=== PATIENT | female | born 1940 | race Caucasian/White ===

== ENCOUNTER 2022-04-25 11:26 | Emergency (ER) | payer MEDICARE, OTHER ==
[~2022-04-25] VITALS: Ht 168.9 cm; Wt 63.6 kg
[2022-04-25] MEDS ORDERED: normal saline 1000ML IV soln IVB ONE (14:20)
[2022-04-25] MEDS ORDERED: ondansetron/PF 4mg/2ml inj IV ONE (14:20)
[2022-04-25 15:01] LABS: BASOPHILS % (AUTO) 0.1 % (0-1); EOSINOPHILS % (AUTO) 0 % (0-6); HEMATOCRIT 39.3 % (35.0-45.0); HEMOGLOBIN 12.9 g/dl (12.0-16.0); LYMPHOCYTES # (AUTO) 0.3 X10'3 (1.1-4.8); LYMPHOCYTES % (AUTO) 2.7 % (21-51); MEAN CORPUSCULAR HEMOGLOBIN 30.8 PG (27.0-31.0); MEAN CORPUSCULAR HGB CONC 32.9 g/dL (33.0-36.5); MEAN CORPUSCULAR VOLUME 93.6 FL (78-98); MEAN PLATELET VOLUME 7.5 FL (7.4-10.4); MONOCYTES # (AUTO) 0.8 X10'3 (0-0.9); MONOCYTES % (AUTO) 6.2 % (2-12); PLATELET COUNT 239 X10'3 (140-440); RED CELL DISTRIBUTION WIDTH 12.4 % (11.5-14.5); WHITE BLOOD COUNT 13.1 X10'3 (4.5-11.0)
[2022-04-25 15:19] LABS: ALANINE AMINOTRANSFERASE 24 U/L (12-78); ALBUMIN 3.5 G/DL (3.4-5.0); ALBUMIN/GLOBULIN RATIO 0.8 (1.1-1.5); ALKALINE PHOSPHATASE 179 IU/L (46-116); ANION GAP 8 (8-16); ASPARTATE AMINO TRANSFERASE 32 U/L (10-37); BILIRUBIN,TOTAL 0.8 MG/DL (0.1-1.0); BLOOD UREA NITROGEN 9 MG/DL (7-18); BUN/CREATININE RATIO 13.6 (6.6-38.0); CALCIUM 9.9 MG/DL (8.5-10.1); CHLORIDE 96 MMOL/L (99-107); CREATININE 0.66 MG/DL (0.40-0.90); GLUCOSE 96 MG/DL (70-104); POTASSIUM 3.7 MMOL/L (3.5-5.1); SODIUM 129 MMOL/L (135-145); TOTAL CARBON DIOXIDE 25.2 MMOL/L (24-32); TOTAL PROTEIN 7.7 G/DL (6.4-8.2); eGFR 86 ML/MIN
[2022-04-25] MEDS ORDERED: metroNIDAZOLE-Flagyl 500mg/NS 100 ML IV STA (15:37)
[2022-04-25] MEDS ORDERED: ciprofloxacin lact 400MG/200ML 200 ML IV STA (15:37)
[2022-04-25] MEDS ORDERED: morphine 4 MG/ML inj SYRINge IV ONE (15:50)
[2022-04-25 16:15] LABS: COLOR,URINE YELLOW (Yellow); GLUCOSE, URINE NEGATIVE (Neg); KETONES,URINE >=80 mg/dl (Neg); LEUKOCYTE ESTERASE ,URINE NEGATIVE (Neg); NITRITES, URINE NEGATIVE (Neg); OCCULT BLOOD,URINE MODERATE (Neg); PH,URINE 5.5 (4.8-8.0); PROTEIN,URINE NEGATIVE (Neg); UROBILINOGEN,URINE 0.2 E.U/dL (0.2-1.0)
[2022-04-25] MEDS ORDERED: TRAM50TA2 PO (16:21)
[2022-04-25] MEDS ORDERED: CIPR-202 PO (16:21)
[2022-04-25] MEDS ORDERED: METR-159 PO (16:21)
[2022-04-25 16:23] LABS: CLARITY,URINE SLIGHTLY CLOUDY (Clear); UA COLLECTION TYPE CLN CATCH MIDSTREAM
[2022-04-25 16:29] LABS: BACTERIA,URINE 2+ /HPF (Neg); MUCUS STRANDS MODERATE /LPF (Neg); SQUAMOUS EPITHELIAL CELL,UR FEW /LPF (FEW)
[2022-04-25 18:19] VITALS: BP 132/68
== END 2022-04-25 18:56 | disposition home or self-care (01) ==
LOC: ER 11:27
DX: K57.92 Diverticulitis of intestine, part unspecified, without perforation or abscess without bleeding (principal); Z79.899 Other long term (current) drug therapy
CPT/HCPCS: 36415; 71045; 74176; 80053; 81001; 85025; 87088; 96361; 96365; 96367; 96375; 99285; J0744; J2270; J3490; J7030

== ENCOUNTER 2022-04-28 17:58 | Inpatient (IN) | payer MEDICARE, OTHER ==
[~2022-04-28] VITALS: Ht 167.6 cm; Wt 65.0 kg
[~2022-04-28 17:58] MED LIST: CIPR-202 PO; METR-159 PO; TRAM50TA2 PO
--- NOTE | 2022-04-28 19:12 | NUR ---
Mahad quintero in EDM - 04/28/22 at 1914 by USMAN THE URINE THAT SHE GAVE WAS SPILLED INSIDE THE BAG AND NOT USEABLE. PT MADE AWARE THAT ANOTHER SAMPLE IS NEEDED AND SUPPLIED GIVEN TO PT.
[2022-04-28 22:18] LABS: CLARITY,URINE SLIGHTLY CLOUDY (Clear); COLOR,URINE YELLOW (Yellow); GLUCOSE, URINE NEGATIVE (Neg); KETONES,URINE 40 mg/dl (Neg); LEUKOCYTE ESTERASE ,URINE MODERATE (Neg); NITRITES, URINE NEGATIVE (Neg); OCCULT BLOOD,URINE MODERATE (Neg); PH,URINE 5.5 (4.8-8.0); PROTEIN,URINE 30 mg/dl (Neg); UROBILINOGEN,URINE 0.2 E.U/dL (0.2-1.0)
[2022-04-28 22:19] LABS: UA COLLECTION TYPE CLN CATCH MIDSTREAM
[2022-04-28 22:31] LABS: BACTERIA,URINE 2+ /HPF (Neg); SQUAMOUS EPITHELIAL CELL,UR FEW /LPF (FEW); WBC,URINE 30-50 /HPF (0-4)
[2022-04-28 22:32] LABS: MUCUS STRANDS FEW /LPF (Neg); TRANSITIONAL EPI CELLS,URINE FEW /HPF; WBC CLUMPS,URINE FEW /HPF (NEGATIVE)
[2022-04-28] MEDS ORDERED: ondansetron/PF 4mg/2ml inj IV ONE (23:20)
[2022-04-28] MEDS ORDERED: HYDROcodone/acetaminophen 10/325mg tab PO ONE (23:20)
[2022-04-28] MEDS ORDERED: normal saline 1000ML IV soln IVB ONE ×2 (23:20→23:40)
[2022-04-28 23:41] LABS: BASOPHILS % (AUTO) 0.3 % (0-1); EOSINOPHILS % (AUTO) 0.2 % (0-6); HEMATOCRIT 43.9 % (35.0-45.0); HEMOGLOBIN 14.9 g/dl (12.0-16.0); LYMPHOCYTES # (AUTO) 0.6 X10'3 (1.1-4.8); LYMPHOCYTES % (AUTO) 4.2 % (21-51); MEAN CORPUSCULAR HEMOGLOBIN 31.6 PG (27.0-31.0); MEAN CORPUSCULAR HGB CONC 33.9 g/dL (33.0-36.5); MEAN CORPUSCULAR VOLUME 93.3 FL (78-98); MEAN PLATELET VOLUME 7.3 FL (7.4-10.4); MONOCYTES # (AUTO) 0.9 X10'3 (0-0.9); MONOCYTES % (AUTO) 6.7 % (2-12); NEUTROPHILS # (AUTO) 11.6 X10'3 (1.8-7.7); NEUTROPHILS % (AUTO) 88.6 % (42-75); PLATELET COUNT 299 X10'3 (140-440); RED BLOOD COUNT 4.71 X10'6 (4.20-5.60); RED CELL DISTRIBUTION WIDTH 12.7 % (11.5-14.5); WHITE BLOOD COUNT 13.1 X10'3 (4.5-11.0)
[2022-04-28 23:57] LABS: ALANINE AMINOTRANSFERASE 18 U/L (12-78); ALBUMIN 3.9 G/DL (3.4-5.0); ALBUMIN/GLOBULIN RATIO 0.8 (1.1-1.5); ALKALINE PHOSPHATASE 161 IU/L (46-116); ANION GAP 13 (8-16); ASPARTATE AMINO TRANSFERASE 25 U/L (10-37); BLOOD UREA NITROGEN 8 MG/DL (7-18); BUN/CREATININE RATIO 10.1 (6.6-38.0); CALCIUM 11.2 MG/DL (8.5-10.1); CHLORIDE 93 MMOL/L (99-107); CREATININE 0.79 MG/DL (0.40-0.90); GLUCOSE 94 MG/DL (70-104); MAGNESIUM 1.9 MG/DL (1.5-2.4); POTASSIUM 3.7 MMOL/L (3.5-5.1); SODIUM 130 MMOL/L (135-145); TOTAL CARBON DIOXIDE 24.3 MMOL/L (24-32); TOTAL PROTEIN 8.8 G/DL (6.4-8.2); eGFR 70 ML/MIN
[2022-04-29] VITALS (10 sets, daily range): BP systolic 123–158; BP diastolic 56–94
[2022-04-29] MEDS ORDERED: diltiazem 5mg/ml 5ml inj. IV ONE (00:40)
[2022-04-29] MEDS ORDERED: diltiazem 30mg tablet PO ONE (00:40)
[2022-04-29] MEDS ORDERED: magnesium Cl slow-release 64mg tablet PO PRN (01:10)
[2022-04-29] MEDS ORDERED: magnesium 4gm in 100ml NS 100 ML IV PRN (01:10)
[2022-04-29] MEDS ORDERED: PERFLUTREN PROTEIN-A MICROSPHR (Optison) 0.22 MG/ML 3ML VIAL IV PRN (01:10)
[2022-04-29] MEDS ORDERED: acetaminophen 325mg tablet PO PRN (01:10)
[2022-04-29] MEDS ORDERED: potassium Cl 40MEQ/1/2NS 520ml 520 ML IV PRN (01:10)
[2022-04-29] MEDS ORDERED: normal saline 1000ml 1,000 ML IV SCH (01:10)
[2022-04-29] MEDS ORDERED: potassium Cl 20 mEq SR tablet PO PRN ×2 (01:10)
[2022-04-29] MEDS ORDERED: metoprolol tartrate 1mg/ml inj IV PRN ×2 (01:15)
[2022-04-29] MEDS: CefTRIAXone/D5W-Rocephin 1gm 50 ML IV SCH (07:09)
--- NOTE | 2022-04-29 07:21 | NUR ---
Paged Dr. Figueroa requesting diet.
[2022-04-29] MEDS: K and/or MAG REPLACEMENT MC SCH ×2 (08:00→19:31)
--- NOTE | 2022-04-29 08:46 | NUR ---
Episode of afib rvr HR 170-180's,denies chest pain, ekg teach at bedside.Paged Dr. Figueroa
--- NOTE | 2022-04-29 08:47 | NUR ---
Received a telephone order from Dr. Figueroa for cardizem ivp and cardizem drip.Patient aware of new orders.Family at bedside.We will monitor.
[2022-04-29] MEDS ORDERED: diltiazem 5mg/ml 5ml inj. IV STA (08:50)
[2022-04-29] MEDS ORDERED: diltiazem-NS 100mg/100ml 100 ML IV SCH (08:50)
[2022-04-29 08:53] LABS: MAGNESIUM 1.8 MG/DL (1.5-2.4); POTASSIUM 3.5 MMOL/L (3.5-5.1)
--- NOTE | 2022-04-29 09:23 | NUR ---
business services tech at bedside.
--- NOTE | 2022-04-29 09:25 | NUR ---
Assisted on a bedpan. Yellow clear urine.
[2022-04-29] MEDS: metroNIDAZOLE-Flagyl 500mg/NS 100 ML IV SCH ×3 (10:06→23:58)
[2022-04-29] MEDS: normal saline 1000ml 1,000 ML IV SCH ×2 (11:25→20:07)
--- NOTE | 2022-04-29 12:50 | NUR ---
Dr. Figueroa at bedside.
[2022-04-29] MEDS ORDERED: METR-159 PO (12:54)
[2022-04-29] MEDS ORDERED: OMEP20CA15 PO (12:54)
[2022-04-29] MEDS ORDERED: CIPR500T5 PO (12:54)
[2022-04-29] MEDS ORDERED: TRAM50TA2 PO (12:54)
[2022-04-29] MEDS ORDERED: heparin 25,000 UNIT/250ml bag 250 ML IV PRN (14:25)
[2022-04-29] MEDS ORDERED: heparin 10,000 units/1 ML INJ IV ONE (14:25)
[2022-04-29] MEDS ORDERED: heparin 10,000 units/1 ML INJ IV PRN (14:25)
[2022-04-29] MEDS ORDERED: amiodarone 150mg/dext, iso-os 100 ML IV ONE (14:30)
--- NOTE | 2022-04-29 14:38 | NUR ---
Spoke to regarding heparin order and pending d dmer states to start heparin drip due to high heart score and afib for stroke prevention.
[2022-04-29] MEDS ORDERED: amiodarone 450 MG in Dext 5% 250ml IV soln IV SCH (14:40)
--- NOTE | 2022-04-29 15:05 | NUR ---
Patient in room ED 7. I have received report from Marcus HUERTA and had the opportunity to ask questions and assume patient care.
--- NOTE | 2022-04-29 15:19 | NUR ---
Paged Dr. Figueroa again regarding heparin order.Heparin not started at this time.
[2022-04-29] MEDS: amiodarone/D5 360MG/200ML BAG 200 ML IV SCH ×2 (15:27→20:03)
[2022-04-29 15:31] LABS: APTT 29 SECONDS (22-32); D-DIMER 1.11 MG/L FEU (0-0.50)
--- NOTE | 2022-04-29 15:33 | NUR ---
Patient remained asymptomatic, anmniodarone drip started.Son at bedside.
--- NOTE | 2022-04-29 18:13 | NUR ---
Problems reprioritized. Patient report given, questions answered & plan of care reviewed with Anam HUERTA.
[2022-04-30] VITALS (17 sets, daily range): BP systolic 125–175; BP diastolic 55–84
[2022-04-30] MEDS: ondansetron/PF 4mg/2ml inj IV PRN ×3 (02:32→23:42)
[2022-04-30] MEDS: morphine 2 MG/ML inj. syringe IV PRN (02:32)
[2022-04-30] MEDS: amiodarone/D5 360MG/200ML BAG 200 ML IV SCH ×2 (02:39→08:40)
--- NOTE | 2022-04-30 03:48 | NUR ---
MD Mehta notified by phone that patient has gram positive cocci in clusters in the anaerobic bottle. had no new orders at this time.
[2022-04-30 06:41] LABS: BASOPHILS % (AUTO) 0.2 % (0-1); EOSINOPHILS # (AUTO) 0.1 X10'3 (0-0.9); EOSINOPHILS % (AUTO) 0.4 % (0-6); HEMATOCRIT 37.7 % (35.0-45.0); HEMOGLOBIN 12.3 g/dl (12.0-16.0); LYMPHOCYTES # (AUTO) 0.8 X10'3 (1.1-4.8); LYMPHOCYTES % (AUTO) 5.6 % (21-51); MEAN CORPUSCULAR HEMOGLOBIN 30.7 PG (27.0-31.0); MEAN CORPUSCULAR HGB CONC 32.8 g/dL (33.0-36.5); MEAN CORPUSCULAR VOLUME 93.7 FL (78-98); MEAN PLATELET VOLUME 7.2 FL (7.4-10.4); MONOCYTES # (AUTO) 0.9 X10'3 (0-0.9); MONOCYTES % (AUTO) 6.5 % (2-12); NEUTROPHILS # (AUTO) 11.9 X10'3 (1.8-7.7); NEUTROPHILS % (AUTO) 87.3 % (42-75); PLATELET COUNT 304 X10'3 (140-440); RED BLOOD COUNT 4.02 X10'6 (4.20-5.60); RED CELL DISTRIBUTION WIDTH 12.4 % (11.5-14.5); WHITE BLOOD COUNT 13.6 X10'3 (4.5-11.0)
[2022-04-30 06:56] LABS: ALBUMIN 2.8 G/DL (3.4-5.0); ANION GAP 9 (8-16); BLOOD UREA NITROGEN 3 MG/DL (7-18); BUN/CREATININE RATIO 6.3 (6.6-38.0); CALCIUM 9.6 MG/DL (8.5-10.1); CHLORIDE 104 MMOL/L (99-107); CREATININE 0.48 MG/DL (0.40-0.90); GLUCOSE 129 MG/DL (70-104); MAGNESIUM 1.7 MG/DL (1.5-2.4); POTASSIUM 3.3 MMOL/L (3.5-5.1); SODIUM 137 MMOL/L (135-145); TOTAL CARBON DIOXIDE 23.7 MMOL/L (24-32); eGFR > 90 ML/MIN
[2022-04-30] MEDS: K and/or MAG REPLACEMENT MC SCH ×2 (08:00→20:28)
[2022-04-30] MEDS: normal saline 1000ml 1,000 ML IV SCH (09:06)
[2022-04-30] MEDS: CefTRIAXone/D5W-Rocephin 1gm 50 ML IV SCH (09:08)
[2022-04-30] MEDS: metroNIDAZOLE-Flagyl 500mg/NS 100 ML IV SCH ×2 (10:39→16:01)
--- NOTE | 2022-04-30 11:01 | NUR ---
Paged Dr Figueroa Message: [phone]. Grad. May I have effer-K for K replacement? Thanks, Aretha [phone] Transaction number: [id number]
[2022-04-30 13:14] LABS: CHOLESTEROL 187 MG/DL (0-200); HDL CHOLESTEROL 62 MG/DL (35-60); LDL CHOLESTEROL 91 MG/DL (50-100); TRIGLYCERIDES 77 MG/DL (20-135)
[2022-04-30 13:34] LABS: HEMOGLOBIN A1C 4.9 % (4.5-6.2)
--- NOTE | 2022-04-30 14:13 | NUR ---
Malnutrition consult: Pt reports 2-13 lb wt loss with decreased appetite per malnutrition risk screen with RN. Attempted visit with pt at bedside however pt out of room. Per EMR pt with chair scaled wt h/o 63.64 kg 04/25, current chair scaled wt is 65 kg; no apparent wt loss. Per EMR pt with no documented significant decrease in muscle strength or edema. Pr currently lacks a minimum of two criteria for malnutrition. Noted pt admit for acute diverticulitis, written diverticulitis nutrition therapy education with a list of fiber content in foods and RD contact information left at patient's bedside. Will remain available. Addendum: 04/30/22 at [address] Amended: Links added.
--- NOTE | 2022-04-30 15:32 | NUR ---
Paged Dr Figueroa Message: [phone]. Krishna. Sinus rhythm, HR 70-80's. Want amio gtt bridged to PO? Aretha [phone] Transaction number: [id number]
[2022-04-30] MEDS ORDERED: vancomycin/NS 1 GM ADD-VANTAGE 250 ML IV SCH ×2 (16:00→16:08)
[2022-04-30] MEDS: POTASSIUM BICARB 20meq eff tab 20 MEQ TABLET.EFF PO PRN ×2 (17:25→21:00)
--- NOTE | 2022-04-30 17:37 | NUR ---
Pharmacy to send the correct vanco. 1609 dose not avail at this time.
--- NOTE | 2022-04-30 18:00 | NUR ---
Student documentation: I have reviewed and agree with all interventions, assessments performed and documented by Meenu.
--- NOTE | 2022-04-30 18:00 | NUR ---
Student Medication Administration: For this medication-pass time frame, all medication were reviewed, dispensed, administered and documented per hospital policy by Meenu.
--- NOTE | 2022-04-30 18:30 | NUR ---
Problems reprioritized. Patient report given, questions answered & plan of care reviewed with Archana, RN. NOC shift to continue to replace K. NOC shift to hang 1609 vanco dose which was just rec'd from pharmacy.
[2022-04-30] MEDS: vancomycin/NS 1 GM ADD-VANTAGE 250 ML IV SCH (20:35)
[2022-04-30] MEDS: amiodarone 200mg tablet PO SCH (20:35)
[2022-04-30] MEDS: carvedilol 6.25mg tablet PO SCH (20:36)
[2022-04-30] MEDS: apixaban 5mg tablet PO SCH (20:36)
[2022-05-01] MEDS: metroNIDAZOLE-Flagyl 500mg/NS 100 ML IV SCH ×3 (00:08→16:08)
[2022-05-01] MEDS: morphine 2 MG/ML inj. syringe IV PRN (00:11)
[2022-05-01] MEDS: ondansetron/PF 4mg/2ml inj IV PRN (02:29)
[2022-05-01 02:51] VITALS: BP 151/68
--- NOTE | 2022-05-01 03:19 | NUR ---
Pt. is awake drowsy and oriented c/o abd pain and frequent stools. Pt. has a peripheral IV with antibiotics infusing. Pt. takes po nutrition and meds well. Medicated for pain and nausea. Sleeping intermittently.
[2022-05-01 06:37] LABS: BASOPHILS % (AUTO) 0.4 % (0-1); EOSINOPHILS # (AUTO) 0.1 X10'3 (0-0.9); EOSINOPHILS % (AUTO) 0.8 % (0-6); HEMATOCRIT 33.3 % (35.0-45.0); HEMOGLOBIN 11.4 g/dl (12.0-16.0); LYMPHOCYTES # (AUTO) 0.7 X10'3 (1.1-4.8); LYMPHOCYTES % (AUTO) 6.7 % (21-51); MEAN CORPUSCULAR HEMOGLOBIN 31.7 PG (27.0-31.0); MEAN CORPUSCULAR HGB CONC 34.2 g/dL (33.0-36.5); MEAN CORPUSCULAR VOLUME 92.8 FL (78-98); MEAN PLATELET VOLUME 7.1 FL (7.4-10.4); MONOCYTES # (AUTO) 0.8 X10'3 (0-0.9); MONOCYTES % (AUTO) 7.5 % (2-12); NEUTROPHILS # (AUTO) 8.8 X10'3 (1.8-7.7); NEUTROPHILS % (AUTO) 84.6 % (42-75); PLATELET COUNT 287 X10'3 (140-440); RED BLOOD COUNT 3.59 X10'6 (4.20-5.60); RED CELL DISTRIBUTION WIDTH 12.4 % (11.5-14.5); WHITE BLOOD COUNT 10.4 X10'3 (4.5-11.0)
[2022-05-01 06:40] LABS: ALBUMIN 2.3 G/DL (3.4-5.0); ANION GAP 7 (8-16); BLOOD UREA NITROGEN 2 MG/DL (7-18); BUN/CREATININE RATIO 4.1 (6.6-38.0); CALCIUM 9.3 MG/DL (8.5-10.1); CHLORIDE 103 MMOL/L (99-107); CREATININE 0.49 MG/DL (0.40-0.90); GLUCOSE 114 MG/DL (70-104); MAGNESIUM 1.5 MG/DL (1.5-2.4); POTASSIUM 3.3 MMOL/L (3.5-5.1); SODIUM 136 MMOL/L (135-145); TOTAL CARBON DIOXIDE 25.9 MMOL/L (24-32); eGFR > 90 ML/MIN
[2022-05-01 07:00] VITALS: BP 160/67
[2022-05-01] MEDS: K and/or MAG REPLACEMENT MC SCH ×2 (08:00→20:35)
[2022-05-01] MEDS: apixaban 5mg tablet PO SCH ×2 (08:32→20:37)
[2022-05-01] MEDS: CefTRIAXone/D5W-Rocephin 1gm 50 ML IV SCH (08:32)
[2022-05-01] MEDS: carvedilol 6.25mg tablet PO SCH ×2 (08:33→20:37)
[2022-05-01] MEDS: amiodarone 200mg tablet PO SCH ×2 (08:33→20:37)
[2022-05-01 12:00] VITALS: BP 144/60
[2022-05-01] MEDS: POTASSIUM BICARB 20meq eff tab 20 MEQ TABLET.EFF PO PRN (13:31)
[2022-05-01 15:00] VITALS: BP 126/62
[2022-05-01 18:00] VITALS: BP 160/67
--- NOTE | 2022-05-01 18:09 | NUR ---
Message: Krishna [phone], Pt is complaining of diarrhea, she doesn't have a med for that. Can we start a med for her? Eliot [phone]
[2022-05-01] MEDS: vancomycin/NS 1 GM ADD-VANTAGE 250 ML IV SCH (18:30)
[2022-05-02] MEDS: metroNIDAZOLE-Flagyl 500mg/NS 100 ML IV SCH ×2 (00:12→08:28)
[2022-05-02 07:34] LABS: BASOPHILS % (AUTO) 0.3 % (0-1); EOSINOPHILS # (AUTO) 0.1 X10'3 (0-0.9); EOSINOPHILS % (AUTO) 0.9 % (0-6); HEMATOCRIT 39.2 % (35.0-45.0); HEMOGLOBIN 13.3 g/dl (12.0-16.0); LYMPHOCYTES % (AUTO) 6.6 % (21-51); MEAN CORPUSCULAR HEMOGLOBIN 31.5 PG (27.0-31.0); MEAN CORPUSCULAR HGB CONC 33.9 g/dL (33.0-36.5); MEAN CORPUSCULAR VOLUME 92.8 FL (78-98); MEAN PLATELET VOLUME 7.4 FL (7.4-10.4); MONOCYTES # (AUTO) 0.9 X10'3 (0-0.9); MONOCYTES % (AUTO) 6.1 % (2-12); NEUTROPHILS # (AUTO) 12.8 X10'3 (1.8-7.7); NEUTROPHILS % (AUTO) 86.1 % (42-75); PLATELET COUNT 389 X10'3 (140-440); RED BLOOD COUNT 4.22 X10'6 (4.20-5.60); RED CELL DISTRIBUTION WIDTH 12.4 % (11.5-14.5); WHITE BLOOD COUNT 14.8 X10'3 (4.5-11.0)
[2022-05-02] MEDS: K and/or MAG REPLACEMENT MC SCH (08:00)
[2022-05-02 08:24] LABS: ANION GAP 7 (8-16); BLOOD UREA NITROGEN 5 MG/DL (7-18); BUN/CREATININE RATIO 7.9 (6.6-38.0); CALCIUM 10.4 MG/DL (8.5-10.1); CHLORIDE 101 MMOL/L (99-107); CREATININE 0.63 MG/DL (0.40-0.90); GLUCOSE 105 MG/DL (70-104); MAGNESIUM 1.7 MG/DL (1.5-2.4); POTASSIUM 3.6 MMOL/L (3.5-5.1); SODIUM 136 MMOL/L (135-145); TOTAL CARBON DIOXIDE 28.1 MMOL/L (24-32); eGFR > 90 ML/MIN
[2022-05-02] MEDS: CefTRIAXone/D5W-Rocephin 1gm 50 ML IV SCH (08:28)
[2022-05-02] MEDS: carvedilol 6.25mg tablet PO SCH (08:29)
[2022-05-02] MEDS: apixaban 5mg tablet PO SCH (08:29)
[2022-05-02] MEDS: amiodarone 200mg tablet PO SCH (08:29)
[2022-05-02] MEDS ORDERED: CARV6.253 PO (10:59)
[2022-05-02] MEDS ORDERED: METR-159 PO (10:59)
[2022-05-02] MEDS ORDERED: APIX5TAB3 PO (10:59)
[2022-05-02] MEDS ORDERED: AMIO200T67 PO (10:59)
[2022-05-02] MEDS ORDERED: POLY17PO10 PO (11:02)
--- NOTE | 2022-05-02 11:38 | NUR ---
Message: SARWAT ON [phone], DR. HERNANDEZ [place]S PO [place] ON [id number] TO BE CHANGED TO DAILY INSTEAD OF BID. CAN YOU REFLECT THAT IN THE DISCHARGE MEDS, THX.
--- NOTE | 2022-05-02 14:48 | NUR ---
Message: Krishna [phone], I see the CDiff order was cancelled due to too formed. Is the pt free for discharge? Eliot [phone]
--- NOTE | 2022-05-02 18:10 | NUR ---
Pt was DC'd as per 's orders. Pt was unhooked from all tele and IV's. Education was provided at bedside to pt and family, all questions were answered. Pt stated they would schedule a follow up appointment and poultry picker their meds from the pharmacy. Med order was changed after Dr Figueroa put orders in. I called pt's preferred pharmacy to have the changes made. Pt gathered all belongings and took home. Pt was wheeled down to lobby by staff and pt left for home in private vehicle.
[2022-05-03] MEDS ORDERED: amiodarone 200mg tablet PO SCH (08:00)
[2022-05-03] MEDS ORDERED: VANCOMYCIN LEVEL IV ONE (15:30)
== END 2022-05-02 16:53 | disposition home or self-care (01) | DRG 872 ==
LOC: ER 17:59 → ED HOLD 04-29 01:12 → CANBEDREQ 04-29 14:43 → PCU 3S 04-29 16:18
PROVIDERS: ADMIT Internal Medicine; ATTEND Family Medicine
DX: A41.9 Sepsis, unspecified organism (principal); K57.32 Diverticulitis of large intestine without perforation or abscess without bleeding; E87.1 Hypo-osmolality and hyponatremia; N39.0 Urinary tract infection, site not specified; I48.0 Paroxysmal atrial fibrillation; R31.9 Hematuria, unspecified; K59.00 Constipation, unspecified; Z90.710 Acquired absence of both cervix and uterus; Z79.899 Other long term (current) drug therapy; Z87.19 Personal history of other diseases of the digestive system; Z87.440 Personal history of urinary (tract) infections; Z87.891 Personal history of nicotine dependence; Z28.310 Unvaccinated for COVID-19; Z79.01 Long term (current) use of anticoagulants
CPT/HCPCS: 36415; 74018; 80048; 80053; 80061; 81001; 83036; 83605; 83735; 83880; 84132; 84145; 84439; 84443; 84484; 85025; 85379; 85610; 85730; 87040; 87045; 87046; 87077; 87081; 87088; 87186; 89055; 93005; 93306; 96361; 96374; 96375; 97116; 97161; 97530; 99285; G0378; J0282; J0696; J1644; J2270; J2405; J3370; J3490; J7030; J7040